=== PATIENT | female | born 1930 | race Caucasian/White ===

== ENCOUNTER → 2017-01-22 | Outpatient (CLI) | payer OTHER ==
[~2017-01-22] MED LIST: ALDOMET250 MG PO; AMLODIPINE BESYL5 MG PO; ASPIRIN PO; B COMPLEX WITH1 EAC1 PO; BAYER ASPIRIN325 M1 PO; CORGARD PO; HCTZ PO; LASIX20 MG PO; LEVAQUIN250 MG PO; LISINOPRIL10 MG PO; LORTAB 7.5-5001 TAB PO; METOPROLOL SUCC25 MG PO; NEURONTIN PO; REQUIP1 MG PO
--- NOTE | ~2017-01-22 | MY10 ---
[facility] A Service of [facility] / [facility] RADIOLOGY TEXT RESULTS PATIENT: REBECA HAWLEY LOCATION: [facility] : [birth year] UNIT #: [id number] AGE: [address]: Gavino Lincoln MD SEX: F ORDER DR: [id number] [facility] [address] [place], [place] [address] [id number] O MR#: [id number] Acc #: [id number] NAME: REBECA HAWLEY : 1930 SEX: F STUDY DATE/TIME: 01/22/2017 11:51 UNIT: [facility] ROOM: STUDY DESCRIPTION: MY Mammogram Screen Uni Dig Rt Attending Physician: Gavino Lincoln M.D. Referring Physician: Gavino Lincoln M.D. Ordering Physician: Gavino Lincoln M.D. Primary Care Physician: Uziel Sandra M.D. MEDICAL IMAGING REPORT This report is preliminary unless electronic signature is present EXAM Unilateral right digital screening mammogram, 01/22/2017. HISTORY 86-year-old woman, status post left mastectomy, 2009. Annual screening. COMPARISON Mammograms date to 09/14/2009, with most recent unilateral exam 01/11/2016. FINDINGS Digital imaging of the right breast was completed, with 3 recorded views. Review includes FDA-approved CAD device. Breast parenchyma is partially fatty replaced. Subareolar duct prominence is present, but stable at this time. There is no interval occurring breast mass and no suspicious microcalcifications. There is no architectural distortion. IMPRESSION Stable benign right mammogram. Status post left mastectomy. Annual screening recommended. Patients over the age of 40 are entered into a reminder system with target due date for the next mammogram. A result letter will also be sent to the patient. BIRADS: 2 Benign finding. Dictated by... [facility] A Service [facility] RADIOLOGY TEXT RESULTS PATIENT: REBECA HAWLEY LOCATION: [facility] : [birth year] UNIT #: [id number] AGE: [address]: Gavino Lincoln MD SEX: F ORDER DR: Casey Costa M.D. THIS IS AN ELECTRONICALLY VERIFIED REPORT Casey Costa M.D. at 01/22/2017 2:53 PM ORIN/nneka TD: 01/22/2017 14:36 JOB #: [id number] MEDICAL IMAGING REPORT Page 1 of 1 COPY
== END | disposition home or self-care (01) ==
LOC: CWCC 11:27
DX: Z12.31 Encounter for screening mammogram for malignant neoplasm of breast (principal); Z90.12 Acquired absence of left breast and nipple; Z85.3 Personal history of malignant neoplasm of breast
CPT/HCPCS: G0202